=== PATIENT | female | born 1980 | race Caucasian/White ===

== ENCOUNTER 2016-12-06 10:57 | Emergency (ER) | payer SELFPAY ==
[~2016-12-06] VITALS: Wt 61.0 kg
[2016-12-06 11:02] VITALS: Wt 61.0 kg
== END 2016-12-06 13:18 | disposition left against medical advice (07) ==
LOC: FTE 10:57
DX: Z53.21 Procedure and treatment not carried out due to patient leaving prior to being seen by health care provider (principal)

== ENCOUNTER 2016-12-26 14:56 | Emergency (ER) | payer OTHER ==
[~2016-12-26] VITALS: Ht 157.5 cm; Wt 70.7 kg
[2016-12-26 15:01] VITALS: Ht 157.5 cm; Wt 70.7 kg
[2016-12-26] MEDS ORDERED: ONDA4TAB8 PO (15:24)
[2016-12-26] MEDS ORDERED: LOPE2CAP PO (15:24)
[2016-12-26] MEDS ORDERED: NAPR-260 PO (15:25)
[2016-12-26] MEDS ORDERED: D-ME473S18 PO (15:26)
--- NOTE | 2016-12-26 15:43 | ERD ---
ER Documentation Chief Complaint Date/Time DATE: 12/26/16 TIME: 15:42 Chief Complaint Flu like symptoms, Fever, ST , body ache, vomiting and diarrhea X 3 days. HPI This is a 36-year-old female presents to the ER with multiple complaints. 4 days ago patient began to experience fever, sore throat, cough, body aches. Patient decided to take amoxicillin are 2 days and afterwards she began to experience diarrhea. Patient also complains of nausea and vomiting. Vomiting is nonbilious nonbloody. She did not get her flu shot. Patient is also complaining of losing her voice. He denies any chest pain or shortness of breath. ROS 12 point review of systems was done, all negative except per HPI. Medications Home Meds Active Scripts Dextromethorphan Hb-Promethazine Hcl (Promethazine DM Syrup) 473 Ml Syrup, 10 ML PO Q6H Y for COUGH, #4 OZ Prov:DEBBIE VICENTE C 12/26/16 Naproxen* (Naprosyn*) 500 Mg Tablet, 500 MG PO BID Y for PAIN AND/OR INFLAMMATION, #30 TAB Prov:CINTHIADEBBIE LUNDBERG C 12/26/16 Loperamide Hcl* (Imodium*) 2 Mg Capsule, 2 MG PO .AFTER EA LOOSE BM Y for DIARRHEA, #10 TAB Prov:DEBBIE VICENTE 12/26/16 Ondansetron Hcl* (Zofran*) 4 Mg Tablet, 4 MG PO Q6H for NAUSEA AND/OR VOMITING, #30 TAB Prov:CINTHIADEBBIE C 12/26/16 Allergies Allergies: Coded Allergies: No Known Drug Allergy (Verified Allergy, Unknown, 01/04/11) PMhx/Soc History of Surgery: Yes (TUBAL LIGATION) Anesthesia Reaction: No Hx Neurological Disorder: No Hx Respiratory Disorders: No Hx Cardiac Disorders: No Hx Psychiatric Problems: No Hx Miscellaneous Medical Probl: No Hx Alcohol Use: No Hx Substance Use: No Hx Tobacco Use: No Physical Exam Vitals Vital Signs Date Time Temp Pulse Resp B/P Pulse Ox O2 Delivery O2 Flow Rate FiO2 12/26/16 15:01 97.3 98 20 114/55 100 Physical Exam GENERAL: The patient is well-developed, well-nourished, in no acute distress. NECK: Cervical spine is non tender with no step off. Supple, no nuchal rigidity HEENT: Atraumatic. Pupils equal, round and reactive to light. Extraocular muscles are grossly intact. Conjunctivae pink, no discharge. Bilateral tympanic membranes are clear with no evidence of erythema, effusion or dulling of the light reflex. Tonsilar erythema with no exudates or uvular deviation. Clear rhinorrhea. RESPIRATORY: Clear to auscultation bilaterally. There are no rales, wheezes or rhonchi. HEART: Regular rate and rhythm. No murmurs, clicks, rubs or gallops. EXTREMITIES: No clubbing or cyanosis. Full range of motion. Grossly neurovascularly intact. NEUROLOGIC: Alert and oriented. Cranial nerves II through XII are intact. SKIN: There is no rash. The skin is warm and dry. Procedures/MDM Differential diagnosis includes but is not limited to; Viral URI, allergic rhinitis, bronchitis, pertussis,pneumonia. This is likely viral in etiology. Clinical suspicion for pneumonia is low as patient appears well, is not hypoxic or in any respiratory distress. Additionally, patients physical examination is benign. Plan was discussed with patient they understand and agree. Patient needs to follow up with PCP in 1-2 days or return to ER sooner if symptoms worsen. Departure Diagnosis: Primary Impression: Influenza-like symptoms Condition: Stable Patient Instructions: Influenza (Adult) Additional Instructions: Llame al doctor RAJENDRA y nora alla EMANUEL PARA DENTRO DE 1-2 BROWNING.Dgale a la secretaria que nosotros le instruimos hacer esta emanuel.Avise o llame si sidhu condicin se empeora antes de la emanuel. Regresa aqui si peor o no mejor. DEBBIE VICENTE Dec 26, 2016 15:43
== END 2016-12-26 15:28 | disposition home or self-care (01) ==
LOC: E/R 14:56
DX: R50.9 Fever, unspecified (principal); J02.9 Acute pharyngitis, unspecified; R05 Cough; R11.2 Nausea with vomiting, unspecified; R52 Pain, unspecified
CPT/HCPCS: 99284